=== PATIENT | male | born 1980 | race Caucasian/White ===

== ENCOUNTER → 2024-08-10 10:13 | Outpatient (REF) | payer OTHER, SELFPAY | LOC: RCS 10:13 | PROVIDERS: ATTENDING PHYSICIAN Physician Assistant Medical | DX: Z13.39 Encounter for screening examination for other mental health and behavioral disorders (principal); R07.89 Other chest pain; K21.9 Gastro-esophageal reflux disease without esophagitis; Z82.49 Family history of ischemic heart disease and other diseases of the circulatory system; Z68.31 Body mass index [BMI] 31.0-31.9, adult; I10 Essential (primary) hypertension | CPT/HCPCS: 93017 ==